=== PATIENT | female | born 1965 | race Caucasian/White ===

== ENCOUNTER 2018-10-02 07:03 | Day surgery (SDC) | payer BC ==
[~2018-10-02 07:03] MED LIST: EPINEPHrine 1:10,000 1 MG/10 ML Syringe ONE; Midazolam 1 MG/ML 2 ML SDV ONE; Propofol 200 MG/20 ML SDV ONE; Sodium Chloride 0.9% 10 ML Syringe FLUSH PRN
[2018-10-02] MEDS ORDERED: Lidocaine 2% 100 MG/5 ML Syringe ONE (07:07)
[2018-10-02] MEDS: Lactated Ringers 1,000 ML IV SCH (08:37)
[2018-10-02] MEDS ORDERED: Midazolam 1 MG/ML 2 ML SDV IV ONE (08:38)
[2018-10-02] MEDS ORDERED: Propofol 200 MG/20 ML SDV IV ONE (08:38)
[2018-10-02] MEDS ORDERED: Lidocaine 2% 5 ML SDV INJECT ONE (08:38)
--- NOTE | 2018-10-02 10:51 | PCM.OPNOTE ---
- General Post-Op/Procedure Note Date of Surgery/Procedure: 10/02/18 Operative Procedure(s): Upper GI endoscopy. Pre Op Diagnosis: Persistent upper abdominal discomfort, dysphagia, flatulence Post-Op Diagnosis: Mild to moderate antral gastritis is observed. Small hiatal hernia with mild inflammation. No evidence for Finnegan's esophagitis, ulceration , polyps. Anesthesia Technique: Regional Block Primary Surgeon: Uvaldo Feldman Condition: Good Free Text/Narrative:: INFORMED CONSENT: Patient is here today for elective upper GI endoscopy. All aspects of this procedure have been discussed with the patient. All possible complications also, including possibility of perforation, infection, pain, bleeding, numbness of the throat, swallowing difficulty and unknown complications. In the event of perforation the patient may need surgical exploration to repair the defect. The patient understands fully well. Patient did not have any further questions for me at the end of my interview. The patient wishes for me to proceed. INSTRUMENT USED: Video gastroscope ANESTHESIA: [MAC] ASA CLASSIFICATION: [2] PROCEDURE PERFORMED: [Upper gastrointestinal endoscopy] PHARYNX: Normal. ESOPHAGUS: Normal. Proximal: Normal. Middle: Normal. Lower: Normal. GE Junction: Small hiatal hernia without inflammation.. STOMACH: Normal. Cardia: Normal. Fundus: Normal. Lesser Curvature: Normal. Greater Curvature: Moderate gastritis.. Antrum: Moderate antral gastritis. Pylorus: Normal. DUODENUM: Normal. First Part: Normal. Second Part: Normal. Third Part: Normal. RETROFLEXION: Normal. BIOPSY: None. TOLERANCE: Excellent. COMPLICATIONS: None. Intake & Output 10/01/18 10/02/18 10/02/18 22:59 06:59 14:59 Intake Total 200 Balance 200 Final diagnosis: Small hiatal hernia without inflammation. Moderate antral gastritis and moderate gastritis of the greater curvature. Tolerance excellent.
== END 2018-10-02 10:08 | disposition home or self-care (01) ==
LOC: KA.SDS 07:03
PROVIDERS: ATTEND Family Medicine
DX: K29.70 Gastritis, unspecified, without bleeding (principal); K44.9 Diaphragmatic hernia without obstruction or gangrene; E03.9 Hypothyroidism, unspecified; E78.5 Hyperlipidemia, unspecified; E66.9 Obesity, unspecified; G62.9 Polyneuropathy, unspecified; M25.50 Pain in unspecified joint; M79.7 Fibromyalgia; R53.83 Other fatigue; Z68.41 Body mass index [BMI] 40.0-44.9, adult; Z88.5 Allergy status to narcotic agent; Z91.040 Latex allergy status; Z87.891 Personal history of nicotine dependence; Z79.82 Long term (current) use of aspirin; Z79.899 Other long term (current) drug therapy
CPT/HCPCS: 43235; J2001; J2250; J2704; J7120